=== PATIENT | male | born 1970 | race Caucasian/White ===

== ENCOUNTER 2019-11-10 04:11 | Inpatient (IN) | payer BC ==
[~2019-11-10] VITALS: Ht 170.2 cm; Wt 79.8 kg
[2019-11-10] MEDS ORDERED: METOPROLOL SUCC25 MG ORAL ×2 (04:17→07:46)
--- NOTE | 2019-11-10 04:23 | NUR ---
ED Nurse Note: Patient brought in by ambulanc with compaints of pain in the abdomen due to pancreatitis.
[2019-11-10 04:24] VITALS: BP 148/98
[2019-11-10] MEDS ORDERED: Ketorolac 30mg Inj IV ONE (04:30)
--- NOTE | 2019-11-10 04:31 | NUR ---
ED Nurse Note: Patient leaving with nuclear reactor technician for CT of abd/pelvis
--- NOTE | 2019-11-10 04:36 | Emergency Room Report ---
History of Present Illness General Chief Complaint: Abdominal Pain Source: Patient Present Illness HPI This a 49-year-old male who said he has a history of pancreatitis. Presents with chief complaint abdominal pain. Onset for over 24 hours. He said the pain is 10 out of 10. Pain is diffuse in nature. No nausea no vomiting. He went to [facility] yesterday. Abdominal pain protocol was done. Labs was done but patient left because he did not get any pain medication. Patient denies any trauma. Denies any alcohol use. Patient has no nausea vomiting or diarrhea. Nothing made it better. Nothing made it worse. Patient is asking for Dilaudid the second he showed up. Patient actually called the nursing shelving supervisor asking if he called 911 and come in whether or not he will get pain medication right away. The nursing shelving supervisor told him that if he come in he will be evaluated and treated by the doctor appropriately. Patient told me that he called his doctor who called the nursing shelving supervisor. This story is incongruent with what the nursing shelving supervisor told me. Allergies: Coded Allergies: PENICILLINS (Verified Allergy, Unknown, 11/10/19) Patient History Past Medical History: see triage record, old chart reviewed Past Surgical History: other Pertinent Family History: none Social History: Denies: smoking Immunizations: other Reviewed Nursing Documentation: PMH: Agreed; PSxH: Agreed Review of Systems Eye: Denies: eye pain, blurred vision ENT: Denies: ear pain, nose congestion, throat swelling Respiratory: Denies: cough, shortness of breath Cardiovascular: Denies: chest pain, palpitations Gastrointestinal: Reports: abdominal pain; Denies: diarrhea, nausea, vomiting Musculoskeletal: Denies: back pain, joint pain Skin: Denies: rash Neurological: Denies: headache, numbness Endocrine: Denies: increased thirst, increased urine Hematologic/Lymphatic: Denies: easy bruising All Other Systems: negative except mentioned in HPI Physical Exam Vital Signs Date Time Temp Pulse Resp B/P (MAP) Pulse Ox O2 Delivery O2 Flow Rate FiO2 11/10/19 04:09 97.9 87 16 148/98 (115) 98 Room Air Vitals normal Sp02 EP Interpretation: reviewed, normal General Appearance: well appearing, no apparent distress, alert Head: normocephalic, atraumatic Eyes: bilateral eye PERRL, bilateral eye EOMI ENT: hearing grossly normal, normal pharynx Neck: full range of motion, supple, no meningismus Respiratory: chest non-tender, lungs clear, normal breath sounds Cardiovascular #1: regular rate, rhythm, no murmur Gastrointestinal: normal bowel sounds, non tender, no mass, no organomegaly, no bruit, non-distended Musculoskeletal: back normal, normal range of motion, gait/station normal Psychiatric: mood/affect normal Medical Decision Making Diagnostic Impression: Primary Impression: Pancreatitis, acute Qualified Codes: K85.90 - Acute pancreatitis without necrosis or infection, unspecified ER Course Patient presents with acute pancreatitis. Labs with elevated lipase. CT scan also showed concerning for acute pancreatitis. No evidence of any perforation or obstruction. Pain is well controlled now. Service elevated lipase, will admit for further IV fluid and work-up. I contacted Dr. Blankenship for admission. CT/MRI/US Diagnostic Results CT/MRI/US Diagnostic Results : Imaging Test Ordered: CT abdomen pelvis. Impression Read by radiologist. Acute pancreatitis. Last Vital Signs Date Time Temp Pulse Resp B/P (MAP) Pulse Ox O2 Delivery O2 Flow Rate FiO2 11/10/19 04:24 87 16 Room Air 11/10/19 04:24 97.9 148/98 98 Status: improved Disposition: ADMITTED INPATIENT Condition: Serious Referrals: NON PHYSICIAN (PCP) Nick Clark MD Nov 10, 2019 04:36
--- NOTE | 2019-11-10 04:43 | NUR ---
ED Nurse Note: Patient returned from radiology.
--- NOTE | 2019-11-10 04:50 | NUR ---
ED Nurse Note: Per patient request, patient provided with a cup of ice and two warm blankets.
[2019-11-10] MEDS ORDERED: HYDROmorphone 1mg/ml Carpuject IVP ONE (05:00)
--- NOTE | 2019-11-10 05:02 | NUR ---
ED Nurse Note: patient unable to provided urine sample at this time. Will continue to monitor.
[2019-11-10 05:11] LABS: BASOPHILS % (AUTO) 0.4 % (0.0-2.0); EOSINOPHILS % (AUTO) 1.5 % (0.0-3.0); HEMOGLOBIN 17.4 G/DL (14.2-18.0); LYMPHOCYTES % (AUTO) 12.2 % (20.0-45.0); MEAN CORPUSCULAR VOLUME 89 FL (80-99); MONOCYTES % (AUTO) 6.4 % (1.0-10.0); NEUTROPHILS % (AUTO) 79.5 % (45.0-75.0); PLATELET COUNT 342 K/UL (150-450); RED BLOOD COUNT 5.39 M/UL (4.70-6.10); RED CELL DISTRIBUTION WIDTH 11.2 % (11.6-14.8); WHITE BLOOD COUNT 14.4 K/UL (4.8-10.8)
[2019-11-10 05:16] LABS: ANION GAP 12 mmol/L (5-15); BLOOD UREA NITROGEN 16 mg/dL (7-18); CALCIUM 9.1 MG/DL (8.5-10.1); CARBON DIOXIDE 27 MMOL/L (21-32); CHLORIDE 100 MMOL/L (98-107); CREATININE 1.3 MG/DL (0.55-1.30); POTASSIUM 4.2 MMOL/L (3.5-5.1); SODIUM 138 MMOL/L (136-145)
[2019-11-10 05:20] LABS: ALANINE AMINOTRANSFERASE 83 U/L (12-78); ALBUMIN 4.1 G/DL (3.4-5.0); ALBUMIN/GLOBULIN RATIO 1.1 (1.0-2.7); ALKALINE PHOSPHATASE 123 U/L (46-116); ASPARTATE AMINO TRANSFERASE 27 U/L (15-37); BILIRUBIN,TOTAL 0.5 MG/DL (0.2-1.0)
--- NOTE | 2019-11-10 05:20 | Diagnostic Imaging Report ---
Indication: Abdominal pain Technique: Spiral acquisitions obtained through the abdomen and pelvis. No oral contrast utilized, per emergency room physician request No IV contrast utilized, per referring physician request.. Multiplanar reconstructions were generated. Total dose length product 1121 mGycm. CTDIvol(s) 18 mGy. Dose reduction achieved using automated exposure control Comparison: None Findings: There is stranding of the peripancreatic fat. The pancreas itself is not particularly enlarged. There is no discrete peripancreatic fluid. No pancreatic gas demonstrated. There are a few prominent peripancreatic lymph nodes noted. The gallbladder is nondistended. No definite gallstones. No biliary ductal dilatation. Lack of IV contrast limits assessment of the solid organs. The liver, gallbladder, bile ducts, spleen, adrenals, kidneys are unremarkable. There are prominent but not frankly enlarged retroperitoneal lymph nodes. No pelvic mass or adenopathy. There is evidence of prior sigmoid resection within into side sigmoid to sigmoid anastomosis. No evidence of colonic diverticulosis or diverticulitis. The appendix is normal. No small bowel distention. No free or loculated intraperitoneal gas or fluid is evident. The distal esophagus, stomach, duodenum are unremarkable. The included lung bases demonstrate posterior dependent atelectatic changes. The bones demonstrate degenerative spondylosis changes, mild. Impression: Findings consistent with uncomplicated early acute pancreatitis Negative for gallstones or dilated bile ducts Evidence of prior sigmoid surgery Other findings as noted, including degenerative spondylosis changes, posterior dependent pulmonary atelectatic changes This agrees with the preliminary interpretation provided overnight by [facility] teleradiology service, with minor variation. The CT scanner at [facility] is accredited by the [employer] and the scans are performed using protocols designed to limit radiation exposure to as low as reasonably achievable to attain images of sufficient resolution adequate for diagnostic evaluation.
[2019-11-10] MEDS ORDERED: ADDERAL20 MG ORAL ×2 (05:30→07:42)
[2019-11-10] MEDS ORDERED: ALPRAZOLAM0.5 MG PO ×2 (05:30→07:38)
[2019-11-10] MEDS ORDERED: AMBIEN10 M1 ORAL (05:30)
--- NOTE | 2019-11-10 05:39 | NUR ---
ED Nurse Note: Called and rendered report to Marianne VENEGAS.
--- NOTE | 2019-11-10 05:48 | NUR ---
ED Nurse Note: patient trasported to floor by wood technologist without incident.
--- NOTE | 2019-11-10 05:49 | NUR ---
NURSE NOTES: Patient came from ER via gurney. Report from Sujata VENEGAS. No s/s of distress noted. A&OX4. IV site patent and intact. Skin intact. Belongings are checked. Bed in lowest position. Call light within reach. Will continue to monitor.
[2019-11-10 06:00] VITALS: BP 113/75
--- NOTE | 2019-11-10 07:29 | NUR ---
HAND-OFF: Report given to Dustin VENEGAS.
--- NOTE | 2019-11-10 07:30 | NUR ---
NURSE NOTES: Handoff received from THEO Coombs. Patient received awake and drowsy in bed, no acute signs of distress noted, patient able to make needs known, IV site is running prescribed fluids, bed in the low and locked position with call light within reach, will continue to monitor patient.
[2019-11-10] MEDS ORDERED: ANDROGEL1.25 GM TD (07:55)
[2019-11-10 08:00] VITALS: BP 102/71
--- NOTE | 2019-11-10 11:50 | General Progress Note ---
Assessment/Plan Problem List: (1) Pancreatitis, acute ICD Codes: K85.90 - Acute pancreatitis without necrosis or infection, unspecified SNOMED: 389721196 Qualifiers: Qualified Codes: K85.90 - Acute pancreatitis without necrosis or infection, unspecified Assessment/Plan: chart at [facility] reviewed patient has had CT/US/ MRCP/and EUS advance diet drug screen Subjective ROS Limited/Unobtainable: Yes Allergies: Coded Allergies: PENICILLINS (Verified Allergy, Unknown, 11/10/19) Objective Last 24 Hour Vital Signs Date Time Temp Pulse Resp B/P (MAP) Pulse Ox O2 Delivery O2 Flow Rate FiO2 11/10/19 09:00 Room Air 11/10/19 08:00 Room Air 11/10/19 08:00 97.0 62 16 102/71 (81) 99 11/10/19 06:00 97.5 61 16 113/75 (88) 100 11/10/19 05:48 97.9 87 16 148/98 98 Room Air 11/10/19 05:26 97.9 11/10/19 05:24 97.9 11/10/19 04:24 87 16 Room Air 11/10/19 04:24 97.9 87 16 148/98 98 Room Air 11/10/19 04:09 97.9 87 16 148/98 (115) 98 Room Air Intake and Output 11/09/19 11/10/19 19:00 07:00 Intake Total 0 ml Balance 0 ml Intake Oral 0 ml Laboratory Tests 11/10/19 04:21: White Blood Count 14.4H, Red Blood Count 5.39, Hemoglobin 17.4, Hematocrit 48.0 , Mean Corpuscular Volume 89, Mean Corpuscular Hemoglobin 32.4H, Mean Corpuscular Hemoglobin Concent 36.4H, Red Cell Distribution Width 11.2L, Platelet Count 342, Mean Platelet Volume 7.4, Neutrophils (%) (Auto) 79.5H, Lymphocytes (%) (Auto) 12.2L, Monocytes (%) (Auto) 6.4, Eosinophils (%) (Auto) 1.5, Basophils (%) (Auto) 0.4, Sodium Level 138, Potassium Level 4.2, Chloride Level 100, Carbon Dioxide Level 27, Anion Gap 12, Blood Urea Nitrogen 16, Creatinine 1.3, Estimat Glomerular Filtration Rate 58.2, Glucose Level 125H, Calcium Level 9.1, Total Bilirubin 0.5, Aspartate Amino Transf (AST/SGOT) 27, Alanine Aminotransferase (ALT/SGPT) 83H, Alkaline Phosphatase 123H, Total Protein 7.9, Albumin 4.1, Globulin 3.8, Albumin/Globulin Ratio 1.1, Lipase 1676H , Serum Alcohol < 3 Height (Feet): 5 Height (Inches): 7.00 Weight (Pounds): 176 General Appearance: alert EENT: normal ENT inspection Neck: supple Cardiovascular: normal rate Respiratory/Chest: decreased breath sounds Abdomen: normal bowel sounds, non tender, soft Extremities: non-tender Scotty Kenny MD Nov 10, 2019 11:50
[2019-11-10 12:00] VITALS: BP 127/84
[2019-11-10] MEDS: HYDROmorphone 1mg/ml Carpuject IVP PRN ×2 (13:01→18:47)
[2019-11-10 13:02] LABS: APPEARANCE,URINE CLEAR; BILIRUBIN, URINE NEGATIVE (NEGATIVE); COLOR,URINE PALE YELLOW; GLUCOSE, URINE (UA) NEGATIVE (NEGATIVE); KETONES,URINE NEGATIVE (NEGATIVE); LEUKOCYTE ESTERASE ,URINE NEGATIVE (NEGATIVE); NITRITE,URINE NEGATIVE (NEGATIVE); PH,URINE 5 (4.5-8.0); PROTEIN,URINE NEGATIVE (NEGATIVE); UROBILINOGEN,URINE NORMAL MG/DL (0.0-1.0)
--- NOTE | 2019-11-10 13:49 | NUR ---
CHARGE NURSE NOTE: URINE DRUG SCREEN: Positive for Benzo, Cocaine, amphetam. notified.
--- NOTE | 2019-11-10 14:48 | NUR ---
CASE MANAGEMENT:INITIAL REVIEW 49 YR OLD MALE BIBA FROM HOME CC;ABDOMINAL PAIN SI;ACUTE PANCREATITIS 97. 87 16 148/98 98% ON RA WBC 14.4 ALT 83 ALK PH 123 LIPASE 1676 ABD/PELVIC CT - Findings consistent with uncomplicated early acute pancreatitis IS;KETEROLAC IV X1 ZOFRAN IV X1 IVF NS BOLUS X1 DILAUDID IV X1 ADMITTED TO MED SURG MED SURG STATUS DCP; FROM HOME
[2019-11-10 16:00] VITALS: BP 114/71
--- NOTE | 2019-11-10 18:11 | NUR ---
NURSE NOTES: Patient complaining of 6/10 abdominal pain, says its the same pain that he was having when he arrived to the hospital. Patient seems anxious and asked multiple times that I notify the MD that he is having pain. Patient says he may have eaten too much food which may have triggered the symptoms. Called Dr evans and left a message on the answering phone.
--- NOTE | 2019-11-10 18:46 | History and Physical Report ---
DATE OF ADMISSION: 11/10/2019 HISTORY OF PRESENT ILLNESS: This is a 49-year-old male who came to the emergency room for having abdominal pain, nausea, vomiting, and found to have acute pancreatitis. The patient claims this time, his pain was worse and feeling he has a bulge in the upper abdomen and the stomach area. He was unable to eat. He also had nausea and vomiting about 3 to 4 times yesterday. The patient claims he has been drinking alcohol every other days 2 to 3 packs and has history of pancreatitis multiple times. The patient had seen GI doctor as an outpatient at [facility] and was given a treatment. Also has ultrasound of gallbladder and bile ducts. This was negative. The patient is currently comfortable, feeling better, feeling hungry, and abdominal pain is subsided with medication. PAST MEDICAL HISTORY: Significant for chronic pancreatitis, anxiety, ADHD, hypertension, and insomnia. MEDICATIONS: See the list. ALLERGIES: To penicillin. FAMILY HISTORY: Significant for pancreatic CA in sister. PHYSICAL EXAMINATION: VITAL SIGNS: Blood pressure is , pulse 62, respirations 16, temperature 97. SKIN: Good skin turgor. HEENT: NAD. CHEST: Bilaterally clear. CARDIOVASCULAR: Regular rhythm. ABDOMEN: Soft. Mild epigastric tenderness. No edema. No mass. EXTREMITIES: CCE. LABORATORY EXAMINATION: His white counts are 14,000, hemoglobin 17. Chemistry panel unremarkable. Lipase was 1676. ASSESSMENT: 1. Acute pancreatitis. 2. Leukocytosis. 3. Hypertension. 4. ADHD. 5. Depression. PLAN: 1. We will admit on medical floor. 2. Start IV fluid. 3. Clear liquid diet. 4. GI consult. 5. Add antibiotic Levaquin. 6. Continue checking the lipase tomorrow. Brooks Blankenship M.D. DR: DEN JOB#: [id number] CC:
--- NOTE | 2019-11-10 19:51 | NUR ---
HAND-OFF: Report given to THEO Rodriguez.
[2019-11-10 20:00] VITALS: BP 126/72
[2019-11-11] VITALS: BP 130/88
[2019-11-11] MEDS: HYDROmorphone 1mg/ml Carpuject IVP PRN ×6 (00:39→23:46)
[2019-11-11 04:00] VITALS: BP 140/70
[2019-11-11 06:17] LABS: BASOPHILS % (AUTO) 0.9 % (0.0-2.0); EOSINOPHILS % (AUTO) 3.4 % (0.0-3.0); HEMATOCRIT 41.3 % (42.0-52.0); HEMOGLOBIN 14.6 G/DL (14.2-18.0); LYMPHOCYTES % (AUTO) 28.8 % (20.0-45.0); MEAN CORPUSCULAR VOLUME 91 FL (80-99); MONOCYTES % (AUTO) 7.6 % (1.0-10.0); NEUTROPHILS % (AUTO) 59.4 % (45.0-75.0); PLATELET COUNT 276 K/UL (150-450); RED BLOOD COUNT 4.53 M/UL (4.70-6.10); WHITE BLOOD COUNT 9.1 K/UL (4.8-10.8)
[2019-11-11 06:45] LABS: ALANINE AMINOTRANSFERASE 59 U/L (12-78); ALBUMIN 2.9 G/DL (3.4-5.0); ALBUMIN/GLOBULIN RATIO 0.9 (1.0-2.7); ALKALINE PHOSPHATASE 89 U/L (46-116); AMYLASE 140 U/L (25-115); ANION GAP 6 mmol/L (5-15); ASPARTATE AMINO TRANSFERASE 15 U/L (15-37); BILIRUBIN,TOTAL 0.3 MG/DL (0.2-1.0); BLOOD UREA NITROGEN 12 mg/dL (7-18); CARBON DIOXIDE 27 MMOL/L (21-32); CHLORIDE 108 MMOL/L (98-107); CHOLESTEROL 158 MG/DL (< 200); CREATININE 1.3 MG/DL (0.55-1.30); HDL CHOLESTEROL 41 MG/DL (40-60); POTASSIUM 4.3 MMOL/L (3.5-5.1); SODIUM 141 MMOL/L (136-145); TRIGLYCERIDES 176 MG/DL (30-150)
[2019-11-11 08:00] VITALS: BP 132/89
--- NOTE | 2019-11-11 08:10 | NUR ---
NURSE NOTES: Received report from THEO Rodriguez. Patient A&Ox4. On room air, no signs of distress or labored breathing. IV intact, patent, and infusing IV fluids. Complaining of increasing pain. Bed in lowest position with call light in reach. Will continue with plan of care.
--- NOTE | 2019-11-11 11:29 | GI Progress Note ---
Assessment/Plan Problems: (1) Drug abuse ICD Codes: F19.10 - Other psychoactive substance abuse, uncomplicated SNOMED: 24008122 (2) Pancreatitis, acute ICD Codes: K85.90 - Acute pancreatitis without necrosis or infection, unspecified SNOMED: [id number] Qualifiers: Qualified Codes: K85.90 - Acute pancreatitis without necrosis or infection, unspecified Status: unchanged Status Narrative Discussed with Dr. Kenny. Assessment/Plan chart at [facility] reviewed patient has had CT/US/ MRCP/and EUS unable to tolerate regular diet, revert to clear and advance as tolerated pain mgmt advance diet drug screen positive repeat lipase The patient was seen and examined at bedside and all new and available data was reviewed in the patients chart. I agree with the above findings, impression and plan. (Patient seen earlier today. Signature stamp does not reflect patient encounter time.). - Scotty Kenny MD Subjective Gastrointestinal/Abdominal: Reports: abdominal pain Objective Last 24 Hour Vital Signs Date Time Temp Pulse Resp B/P (MAP) Pulse Ox O2 Delivery O2 Flow Rate FiO2 11/11/19 04:00 98.2 20 140/70 (93) 11/11/19 00:00 97.6 19 130/88 (102) 11/10/19 21:00 Room Air 11/10/19 20:00 97.3 77 19 126/72 (90) 98 11/10/19 16:00 97.9 80 17 114/71 (85) 99 11/10/19 12:00 97.9 73 16 127/84 (98) 99 Intake and Output 11/10/19 11/11/19 19:00 07:00 Intake Total 600 ml Balance 600 ml Intake Oral 600 ml # Voids 3 4 Laboratory Tests Test 11/10/19 12:20 11/11/19 05:46 Urine Color Pale yellow Urine Appearance Clear Urine pH 5 (4.5-8.0) Urine Specific [place] 1.015 (1.005-1.035) Urine Protein Negative (NEGATIVE) Urine Glucose (UA) Negative (NEGATIVE) Urine Ketones Negative (NEGATIVE) Urine Blood Negative (NEGATIVE) Urine Nitrite Negative (NEGATIVE) Urine Bilirubin Negative (NEGATIVE) Urine Urobilinogen Normal MG/DL (0.0-1.0) Urine Leukocyte Esterase Negative (NEGATIVE) Urine Opiates Screen Negative (NEGATIVE) Urine Barbiturates Screen Negative (NEGATIVE) Phencyclidine (PCP) Screen Negative (NEGATIVE) Urine Amphetamines Screen Positive (NEGATIVE) H Urine Benzodiazepines Screen Positive (NEGATIVE) H Urine Cocaine Screen Positive (NEGATIVE) H Urine Marijuana (THC) Screen Negative (NEGATIVE) White Blood Count 9.1 K/UL (4.8-10.8) Red Blood Count 4.53 M/UL (4.70-6.10) L Hemoglobin 14.6 G/DL (14.2-18.0) Hematocrit 41.3 % (42.0-52.0) L Mean Corpuscular Volume 91 FL (80-99) Mean Corpuscular Hemoglobin 32.1 PG (27.0-31.0) H Mean Corpuscular Hemoglobin Concent 35.3 G/DL (32.0-36.0) Red Cell Distribution Width 12.0 % (11.6-14.8) Platelet Count 276 K/UL (150-450) Mean Platelet Volume 7.6 FL (6.5-10.1) Neutrophils (%) (Auto) 59.4 % (45.0-75.0) Lymphocytes (%) (Auto) 28.8 % (20.0-45.0) Monocytes (%) (Auto) 7.6 % (1.0-10.0) Eosinophils (%) (Auto) 3.4 % (0.0-3.0) H Basophils (%) (Auto) 0.9 % (0.0-2.0) Sodium Level 141 MMOL/L (136-145) Potassium Level 4.3 MMOL/L (3.5-5.1) Chloride Level 108 MMOL/L (98-107) H Carbon Dioxide Level 27 MMOL/L (21-32) Anion Gap 6 mmol/L (5-15) Blood Urea Nitrogen 12 mg/dL (7-18) Creatinine 1.3 MG/DL (0.55-1.30) Estimat Glomerular Filtration Rate 58.2 mL/min (>60) Glucose Level 101 MG/DL (74-106) Calcium Level 8.0 MG/DL (8.5-10.1) L Total Bilirubin 0.3 MG/DL (0.2-1.0) Aspartate Amino Transf (AST/SGOT) 15 U/L (15-37) Alanine Aminotransferase (ALT/SGPT) 59 U/L (12-78) Alkaline Phosphatase 89 U/L (46-116) Total Protein 6.3 G/DL (6.4-8.2) L Albumin 2.9 G/DL (3.4-5.0) L Globulin 3.4 g/dL Albumin/Globulin Ratio 0.9 (1.0-2.7) L Triglycerides Level 176 MG/DL (30-150) H Cholesterol Level 158 MG/DL (< 200) LDL Cholesterol 85 mg/dL (<100) HDL Cholesterol 41 MG/DL (40-60) Cholesterol/HDL Ratio 3.9 (3.3-4.4) Amylase Level 140 U/L (25-115) H Lipase 1132 U/L (73-393) H Height (Feet): 5 Height (Inches): 7.00 Weight (Pounds): 176 General Appearance: WD/WN, no apparent distress, alert Cardiovascular: normal rate Respiratory/Chest: normal breath sounds, no respiratory distress Abdominal Exam: normal bowel sounds, non tender, soft Extremities: normal range of motion, non-tender Chan Clark NP Nov 11, 2019 11:29
[2019-11-11 12:00] VITALS: BP 128/88
--- NOTE | 2019-11-11 15:15 | Progress Note ---
DATE: 11/11/2019 SUBJECTIVE: This is elderly 49-year-old male came with abdominal pain, nausea, vomiting. The patient is feeling better. Abdominal pain is improving. OBJECTIVE: VITAL SIGNS: Blood pressure 140/70, pulse 70s, temperature is 98.2. HEENT: NAD. CHEST: Bilaterally clear. CARDIOVASCULAR: Regular rhythm. ABDOMEN: Soft. EXTREMITIES: No edema. LABORATORY DATA: White counts 9.1, hemoglobin 46, platelets are normal. His lipase is 1132. Amylase is 140. Drug screen positive benzos, cocaine, marijuana. ASSESSMENT: 1. Acute pancreatitis. 2. Substance abuse. PLAN: We will currently continue current treatment. GI is on case. Brooks Blankenship M.D. DR: DEN JOB#: [id number] CC:
[2019-11-11 16:00] VITALS: BP 139/98
--- NOTE | 2019-11-11 16:02 | NUR ---
CASE MANAGEMENT:REVIEW SI;ACUTE PANCREATITIS. SUBSTANCE ABUSE. 98.2 76 20 140/70 97% ON RA CL 108 CA 8 AMYLASE 140 LIPASE 1132 IS;DILAUDID IV Q4 HRS PRN LEVAQUIN IV Q24 HRS IVF NS @ 100 ML/HR MED SURG STATUS DCP;FROM HOME
[2019-11-11] MEDS ORDERED: Zolpidem 5mg tab ORAL PRN (19:00)
--- NOTE | 2019-11-11 19:19 | NUR ---
HAND-OFF: Report given to THEO Montejo.
--- NOTE | 2019-11-11 19:26 | NUR ---
NURSE NOTES: Received pt from THEO Cartagena. AAO x 4, on room air. Pt is ambulatory. IV intact and running IVF. No acute distress noted. No labored breathing. Pain med will be given as scheduled. Bed locked, lowest position, side rails up, call light within reach. Will continue to monitor.
[2019-11-11 20:00] VITALS: BP 150/100
[2019-11-12] VITALS: BP 132/79
[2019-11-12] MEDS ORDERED: HYDROcodone/Acetamin 5/325 tab ORAL PRN
--- NOTE | 2019-11-12 00:06 | NUR ---
NURSE NOTES: IV leaking noted but pt refused new IV insertion and removing IV. Pt wants to keep the old IV. Called Dr. Blankenship and received order Gaffney 5/325 1tb q 4hr prn for pain and DC IVF.
[2019-11-12 04:00] VITALS: BP 127/81
--- NOTE | 2019-11-12 06:27 | NUR ---
NURSE NOTES: Pt refused blood drawing for labs. Still refused IV insertion. Addendum: 11/12/19 at 0714 by EDGARD DEMARCO RN RN NURSE NOTES: Pt agreed blood drawing finally. Blanking Machine Operator took the blood.
--- NOTE | 2019-11-12 07:25 | NUR ---
HAND-OFF: Report given to THEO Cartagena.
--- NOTE | 2019-11-12 07:35 | NUR ---
NURSE NOTES: Received report from THEO Montejo. Patient A&ox4. On room air, no signs of distress or labored breathing. No IV access, MD aware. Bed in lowest position with call light in reach. Will continue with plan of care.
[2019-11-12 08:00] VITALS: BP 147/92
[2019-11-12 08:24] LABS: ANION GAP 5 mmol/L (5-15); BLOOD UREA NITROGEN 9 mg/dL (7-18); CARBON DIOXIDE 30 MMOL/L (21-32); CHLORIDE 106 MMOL/L (98-107); CREATININE 1.3 MG/DL (0.55-1.30); POTASSIUM 4.7 MMOL/L (3.5-5.1); SODIUM 141 MMOL/L (136-145)
[2019-11-12 09:03] LABS: BASOPHILS % (AUTO) 0.8 % (0.0-2.0); EOSINOPHILS % (AUTO) 3.1 % (0.0-3.0); HEMATOCRIT 43.4 % (42.0-52.0); LYMPHOCYTES % (AUTO) 29.5 % (20.0-45.0); MEAN CORPUSCULAR VOLUME 93 FL (80-99); MONOCYTES % (AUTO) 6.7 % (1.0-10.0); NEUTROPHILS % (AUTO) 59.9 % (45.0-75.0); PLATELET COUNT 298 K/UL (150-450); RED BLOOD COUNT 4.69 M/UL (4.70-6.10)
--- NOTE | 2019-11-12 10:39 | NUR ---
AMA: SEE AMA FORM. At 0920. Charge nurse aware, supervisor files aware, and MD aware.
--- NOTE | 2019-11-12 22:00 | Progress Note ---
DATE: 11/12/2019 SUBJECTIVE: This is 49 years old male, came with acute pancreatitis, depression, and psychosis. The patient has also noted her drug screen was positive. Lipase was about 2000. Successively, the patient's lipase become symptomatically better, tolerating liquid diet. The patient wants to go home. OBJECTIVE: VITAL SIGNS: Blood pressure 127/81, pulse 56, no fever. CHEST: Bilaterally clear. CARDIOVASCULAR: Regular rhythm. ABDOMEN: Soft. EXTREMITIES: CCE. LABORATORY DATA: His white counts are normal 8000, hemoglobin 15, hematocrit 43. His chemistry panel, his lipase is 617. ASSESSMENT AND PLAN: 1. Acute pancreatitis, . 2. Substance abuse. Recommended to quit drugs. Continue soft diet and quit all the drugs. Continue Levaquin for 5 days, Zofran, and Tylenol. The patient is tolerating diet, he is walking, home. Follow up with primary care. Brooks Blankenship M.D. DR: DON JOB#: [id number] CC:
--- NOTE | 2019-11-14 08:44 | Discharge Summary ---
Discharge Summary Discharge Summary _ DATE OF ADMISSION: 11/10/2019 DATE OF DISCHARGE: DISCHARGED BY: Dr. Blankenship REASON FOR ADMISSION: 49 years old male with past medical history of chronic pancreatitis, ADHD, hypertension, insomnia, anxiety, presented to emergency department with complaint of abdominal pain, nausea , vomiting . Shortly after initial evaluation patient was found to have acute pancreatitis. Patient was afebrile, vital signs were stable. CT scan of the abdomen and pelvis revealed findings , consistent with uncomplicated early acute pancreatitis. No gallstones, no dilated bile ducts. Evidence of prior sigmoid surgery. Laboratory work-up revealed leukocytosis WBC 14.4, stable hemoglobin, hematocrit and platelet count. Lipase 1676. Stable electrolytes and renal parameters. Glucose 125. AST 27, ALT 83. Alkaline phosphatase 123. Urinalysis was unremarkable. Patient admitted for further management. CONSULTANTS: GI specialist Dr. Kenny [place] [employer] COURSE: Patient admitted to medical surgical floor. Patient started on the IV fluids and clear liquid diet. GI specialist consulted. Patient started on empiric antibiotics. Lipase was trending. GI specialist closely followed. Patient had a work-up at [facility] [place] done prior. Patient had a CT scan, ultrasound, MRCP and endoscopic ultrasound done there Diet was advanced as tolerated. Antiemetic provided as needed. Urine toxicology screen was positive for amphetamine cocaine and benzodiazepines. Serum alcohol level was less than 3. Patient was counseled on abstinence from illicit street drugs. Lipid panel stable. Amylase 140. Lipase slowly trending down, and prior to signing AMA- 617. ALT trended down from 83 to 59. Leukocytosis resolved , likely was reactive due to acute pancreatitis. No fevers, no signs of infection. On 11/12/2019 patient decided to leave AGAINST MEDICAL ADVICE. The risks and consequences of signing AGAINST MEDICAL ADVICE were discussed with patient in detail. Patient verbalized understanding, nevertheless signed AMA form and left. FINAL DIAGNOSES: Acute pancreatitis Leukocytosis Polysubstance abuse Hypertension ADHD Depression I have been assigned to dictate discharge summary for this account. I was not involved in the patient's management. Jayna Watts NP Nov 14, 2019 08:44
== END 2019-11-12 09:20 | disposition left against medical advice (07) | DRG 440 ==
LOC: EDBD 04:11 → EMR 04:26 → 4E 05:00 → EDBEDREQ 05:11
DX: K85.90 Acute pancreatitis without necrosis or infection, unspecified (principal); Z88.0 Allergy status to penicillin; I10 Essential (primary) hypertension; F90.9 Attention-deficit hyperactivity disorder, unspecified type; F32.9 Major depressive disorder, single episode, unspecified; G47.00 Insomnia, unspecified; F41.9 Anxiety disorder, unspecified; F19.10 Other psychoactive substance abuse, uncomplicated
CPT/HCPCS: 36415; 74176; 80048; 80053; 80061; 80307; 81003; 82150; 83690; 85025; 96361; 96374; 96375; 99285; G0480; J2405; J7030